=== PATIENT | male | born 1990 | race Two or more races ===

== ENCOUNTER 2021-11-10 01:19 | Emergency (ER) | payer SELFPAY ==
--- NOTE | 2021-11-10 01:50 | NUR ---
Patient was called to be triaged but was not in the waiting room or outside of ER.
--- NOTE | 2021-11-10 02:00 | NUR ---
Patient was called to be triaged but was not present in the waiting room or outside of ER. PATIENT WAS NOT TRIAGED OR SEEN BY [facility].
== END 2021-11-10 02:00 | disposition left against medical advice (07) ==
LOC: ER 01:32
DX: Z53.21 Procedure and treatment not carried out due to patient leaving prior to being seen by health care provider (principal)

== ENCOUNTER 2021-11-10 10:47 | Emergency (ER) | payer OTHER ==
[~2021-11-10] VITALS: Ht 165.1 cm; Wt 68.0 kg
--- NOTE | 2021-11-10 11:32 | NUR ---
at bedside for evaluation.
[2021-11-10 11:59] LABS: HEMATOCRIT 44.8 % (36.7-47.1); MEAN CORPUSCULAR HEMOGLOBIN 30.8 uug (23.8-33.4); MEAN CORPUSCULAR VOLUME 90.9 fL (73.0-96.2); PLATELET COUNT (AUTO) 248 K/uL (152-348)
--- NOTE | 2021-11-10 12:00 | NUR ---
Pt stepped outside to make a phone call, stated he would be back. Pt has still not returned.
[2021-11-10 12:09] LABS: CREATININE 0.8 mg/dL (0.6-1.3)
[2021-11-10 12:09] LABS: *BILIRUBIN,URIN NEGATIVE (NEGATIVE); *BLOOD, URINE NEGATIVE (NEGATIVE); *CLARITY,URINE CLEAR (CLEAR); *COLOR,URINE YELLOW (YELLOW); *KETONES,URINE NEGATIVE (NEGATIVE); LEUKOCYTE ESTERASE ,URINE 1+ (NEGATIVE); NITRITE, URINE NEGATIVE (NEGATIVE); UGLUCOSE NEGATIVE (NEGATIVE)
[2021-11-10 12:14] LABS: BILIRUBIN,DIRECT 0.1 mg/dL (0.0-0.2); BILIRUBIN,TOTAL 0.4 mg/dL (0.2-1.0); TOTAL PROTEIN, SERUM 6.7 g/dL (6.4-8.2)
--- NOTE | 2021-11-10 13:56 | NUR ---
Patient returned after making "phone call" but never came inside ER. Apparently patient left.
[2021-11-10 19:36] LABS: BACTERIA,URINE NONE SEEN /HPF (NONE SEEN); MUCUS,URINE FEW /LPF (0-FEW); RBC,URINE 0-3 /HPF (0-3); SQUAMOUS EPITHELIAL CELL,UR FEW /HPF (NONE SEEN)
== END 2021-11-10 13:59 | disposition left against medical advice (07) ==
LOC: ER 10:47
DX: K60.4 Rectal fistula (principal); Z59.00 Homelessness unspecified
CPT/HCPCS: 36415; 83690; 85025; 87086; A4663